=== PATIENT | female | born 1995 | race Caucasian/White ===

== ENCOUNTER → 2021-09-17 | Outpatient (CLI) | payer OTHER | LOC: M.ULTRA 11:30 | PROVIDERS: ATTEND Nurse Practitioner Family | DX: N63.11 Unspecified lump in the right breast, upper outer quadrant (principal); N63.22 Unspecified lump in the left breast, upper inner quadrant ==

== ENCOUNTER → 2021-10-02 | Outpatient (CLI) | payer OTHER ==
--- NOTE | 2021-10-06 15:07 | PATH ---
[address] [address] PATHOLOGY RPT PROCEDURE Name: MACY GALLEGOS Room: [facility] Parry#: [id number] Admission: 10/02/21 Date of : 89 Discharge: Report #: [id number] Path Case #: [id number] [facility] Accession Number: [id number] . 01 Material submitted: . breast - RIGHT BREAST TISSUE. Modifiers: right . 01 Clinical history: . RT BREAST MASS 1.03 X 0.72 X 0.84 . 02 Diagnosis: Right breast mass, image-guided core biopsies: - Benign breast tissue with usual ductal epithelial hyperplasia and minimal chronic inflammation, negative for atypia. See comment. . (BRETT:melanie; 10/03/2021) QL 10/03/2021 1547 Local . 02 Comment: It is uncertain if a "mass" has been sampled from the histology and correlation with the target lesion is recommended. . Reviewed with Dr. Josué Ortiz on 10/03/2021 who agrees with the diagnosis. . (BRETT:melanie; 10/03/2021) . 02 Electronically signed: . Prasanth Barnes MD, Pathologist NPI- [id number] . 01 Gross description: . The specimen is received in formalin, labeled "Macy Gallegos, right breast". Received is 1 needle core of fibrofatty tissue measuring 2.1 cm in greatest dimensions. The specimen is submitted entirely in cassettes A1. The specimen is collected at 0948 and placed into formalin at 0949 on 10/02/2021. The specimen is removed from formalin at 2240 on 10/02/2021. The total formalin fixation time is 13 hours and 9 minutes. ([facility]; 10/02/2021) NRI/NRI 10/02/2021 2100 Local . 02 Pathologist provided ICD-10: N62, N61.0 . 02 CPT . 688368 Specimen Comment: A courtesy copy of this report has been sent to [phone], [phone] [id number] PATHOLOGY RPT PROCEDURE Name: MACY GALLEGOS ANTONETTE [id number] Admission: 10/02/21 Date of : 89 Discharge: Report #: [id number] Path Case #: [id number] Specimen Comment: [id number] Specimen Comment: Report sent to / DR CORDOVA Performed at: [address], [place], [place] [id number] MD Josué Ortiz MD Phone: [phone] Performed at: 02 [facility] [address], [place], [place] [id number] MD Prasanth Barnes MD Phone: [phone]
== END ==
LOC: M.ULTRA 08:27
PROVIDERS: ATTEND Nurse Practitioner Family
DX: N62 Hypertrophy of breast (principal); N61.0 Mastitis without abscess